=== PATIENT | female | born 1985 | race Caucasian/White ===

== ENCOUNTER 2020-06-01 01:14 | Emergency (ER) | payer BC, OTHER ==
--- NOTE | 2020-06-01 01:41 | PDOC ---
Attending Attestation - Resident Resident Name: Sb Dutta - ED Attending Attestation I have performed the following: I have examined & evaluated the patient, The case was reviewed & discussed with the resident, I agree w/resident's findings & plan - HPI HPI: 06/01/20 01:41 PT COMES WITH THREATENED AB; SHE IS 8 WEEKS - Physicial Exam PE: 06/01/20 05:36 lower abd pain on the right. No flank pain no suprapubic pain heart and lungs normal HEENT normal FATS AND OILS LOADER at bedside evaluating her vaginal exam - Medical Decision Making 06/01/20 03:17 Patient Name: JOIE ESTRADA THIS IS A PRELIMINARY REPORT DATE OF SERVICE: 2020-06-01 01:36:31 IMAGES: 53 EXAM: ULTRASOUND OB LESS THAN 14 WEEKS TRANSVAGINAL AND ULTRASOUND COLOR DUPLEX HISTORY: 34-Year-Old Female test results of the beta hCG are still pending with a Last Menstrual Period April 22, 2020 and if the patient is Estimated Gestational Age Based On the Last Menstrual Period is approximately 5 Weeks 5 Days. COMPARISON: None. FINDINGS: The right ovary measures 3 x 1.3 x 2.4 cm. Right adnexa nonspecific complex soft tissue mass measures 3.5 x 1.5 x 3.4 cm with a nonspecific irregular complex cystic process with no clearly defined pole and no yolk sac identified measures approximately 1.3 x 0.4 x 0.7 cm suspicious for an ectopic or other nonspecific complex adnexal cystic process. Small amount of nonspecific free fluid in the pelvis may be physiologic or due to infection. No intrauterine . The uterus measures 8.6 x 4.5 x 6.4 cm. There is no evidence of myometrial masses. The endometrium is normal in thickness and measures 1.7 cm. The left ovary measures 3.5 x 2.2 x 2.5 cm. Left ovary 1.4 x 0.9 x 1.4 cm cystic process most likely due to a corpus luteal cyst. COLOR DUPLEX: There is satisfactory perfusion to both the left and right ovary with normal appearing arterial and venous spectral waveforms. IMPRESSION: No evidence of ovarian torsion. Right adnexa nonspecific complex soft tissue mass measures 3.5 x 1.5 x 3.4 cm with a nonspecific irregular complex cystic process with no clearly defined pole and no yolk sac identified measures approximately 1.3 x 0.4 x 0.7 cm suspicious for an ectopic or other nonspecific complex adnexal cystic process. If clinically indicated recommend REPRODUCTION TECHNICIAN consultation and follow-up pelvic ultrasound. Small amount of nonspecific free fluid in the pelvis may be physiologic or due to infection. No intrauterine . This may be due to a normal early intrauterine that is too early to detect versus a spontaneous versus an ectopic . If clinically indicated recommend correlation with serial beta-hCG levels. Left ovary 1.4 x 0.9 x 1.4 cm cystic process most likely due to a corpus luteal cyst. 06/01/20 03:18 Pt's chem is normal beta HCG pending 06/01/20 05:37 FATS AND OILS LOADER at [facility] and they will decide whether to surgically or medically treat patient. Discharge - Discharge Information Problems reviewed: Yes Clinical Impression/Diagnosis: Ectopic Condition: Fair - Follow up/Referral Referrals: Carol Oneill [Primary Care Provider] - - Patient Discharge Instructions Patient Printed Discharge Instructions: DI for Ectopic Additional Instructions: You were seen in the ER for abdominal pain and vaginal bleeding in the context of . You received labs and imaging. Your imaging revealed a cystic mass in your right adnexa suggestive of ectopic . You were given medication for management of ectopic . Please followup with Dr. Cruz on the 04 of June. Please return to emergency department if you experience a worsening of your condition or fever, chills, night sweats, nausea, vomiting, shortness of breath. - Post Discharge Activity
--- OUTSIDE RECORDS SUMMARY | 2020-06-01 01:42 | XMS ---
:[address] [facility] Support Name Relationship Address Phone YOBE Unavailable [address] [place] [address] MARICARMEN ESTRADA [address] [place] [address] Re-disclosure Warning The records that you are about to access may contain information from federally- assisted alcohol or drug abuse programs. If such information is present, then the following federally mandated warning applies: This information has been disclosed to you from records protected by federal confidentiality rules (42 CFR part 2). The federal rules prohibit you from making any further disclosure of this information unless further disclosure is expressly permitted by the written consent of the person to whom it pertains or as otherwise permitted by 42 CFR part 2. A general authorization for the release of medical or other information is NOT sufficient for this purpose. The Federal rules restrict any use of the information to criminally investigate or prosecute any alcohol or drug abuse patient.The records that you are about to access may contain highly sensitive health information, the redisclosure of which is protected by Article 27-F of the [facility] Public [facility] law. If you continue you may haveaccess to information: Regarding HIV / AIDS; Provided by facilities licensed or operated by the [facility] Office of Mental Health; or Provided by the [facility] Office for People With Developmental Disabilities. If such information is present, then the following [facility] mandated warning applies: This information has been disclosed to you from confidential records which are protected by state law. State law prohibits you from making any further disclosure of this information without the specific written consent of the person to whom it pertains, or as otherwise permitted by law. Any unauthorized further disclosure in violation of state law may result in a fine or half-way sentence or both. A general authorization for the release of medical or other information is NOT sufficient authorization for further disclosure. Insurance Providers Payer name Policy type / Policy ID Covered Covered alliance party's Policy Plan Coverage type alliance party ID relationship to Jade Information jade EPO [id number] SP [id number] GHI PPO [id number] SP [id number] PPO [id number] S [id number]
[2020-06-01 01:43] VITALS: BMI 22.0
--- NOTE | 2020-06-01 02:33 | PDOC ---
History of Present Illness - General Chief Complaint: Pain Stated Complaint: ABDOMINAL PAIN Time Seen by Provider: 06/01/20 01:38 - History of Present Illness Initial Comments: 34 G1PO no significant medical history presents with lower abdominal pain and vaginal bleeding since 2 hours prior to arrival. Patient reports she observed blood mixed in with urine and has gone through one pad since the bleeding began. No bleeding prior to this evening. Denies fever Constitutional: No Weight Change, No Fever, No Chills, No Night Sweats, No Fatigue, No Malaise ENT/Mouth: No Hearing Changes, No Ear Pain, No Nasal Congestion, No Sinus Pain, No Hoarseness, No sore throat, No Rhinorrhea, No Swallowing Difficulty Eyes: No Eye Pain, No Swelling, No Redness, No Foreign Body, No Discharge, No Vision Changes Cardiovascular: No Chest Pain, No SOB, No PND, No Dyspnea on Exertion, No Orthopnea, No Claudication, No Edema, No Palpitations Respiratory: No Cough, No Sputum, No Wheezing, No Smoke Exposure, No Dyspnea Gastrointestinal: No Nausea, No Vomiting, No Diarrhea, No Constipation, + Pain, No Heartburn, No Anorexia, No Dysphagia, No Hematochezia, No Melena, No Flatulence, No Jaundice Genitourinary: No Dysmenorrhea, No DUB, No Dyspareunia, No Dysuria, No Urinary Frequency, + Hematuria, No Urinary Incontinence, No Urgency, No Flank Pain, No Urinary Flow Changes, No Hesitancy Musculoskeletal: No Arthralgias, No Myalgias, No Joint Swelling, No Joint Stiffness, No Back Pain, No Neck Pain, No Injury History Skin: No Skin Lesions, No Pruritis, No Hair Changes, No Breast/Skin Changes, No Nipple Discharge Neuro: No Weakness, No Numbness, No Paresthesias, No Loss of Consciousness, No Syncope, No Dizziness, No Headache, No Coordination Changes, No Recent Falls Psych: No Anxiety/Panic, No Depression, No Insomnia, No Personality Changes, No Delusions, No Rumination, No SI/HI/AH/VH, No Social Issues, No Memory Changes, N o Violence/Abuse Hx., No Eating Concerns Heme/Lymph: No Bruising, No Bleeding, No Transfusions History, No Lymphadenopathy Endocrine: No Polyuria, No Polydipsia, No Temperature Intolerance 06/01/20 02:51 Past History - Medical History Allergies/Adverse Reactions: Allergies Allergy/AdvReac Type Severity Reaction Status Date / Time No Known Allergies Allergy Verified 06/01/20 01:40 COPD: No - Reproductive History Is Patient Now?: Yes - Psycho-Social/Smoking History Smoking History: Never smoked - Substance Abuse Hx (Audit-C & DAST Scrn) How often the patient has a drink containing alcohol: Never Score: In Men: 4 or > Positive; In Women: 3 or > Positive: 0 Screen Result (Pos requires Nsg. Audit-10AR): Negative In the last yr the pt used illegal drug/Rx for NonMed reason: No Score: Yes response is considered Positive: 0 Screen Result (Positive result requires Nsg. DAST-10): Negative *Physical Exam - Vital Signs Last Vital Signs Temp Pulse Resp BP Pulse Ox 98.0 F 89 18 113/75 100 06/01/20 01:38 06/01/20 01:38 06/01/20 01:38 06/01/20 01:38 06/01/20 01:38 - Physical Exam General Appearance: Yes: Nourished, Appropriately Dressed, Moderate Distress HEENT: positive: EOMI, PORSHA, Normal ENT Inspection, Normal Voice, Symmetrical, TMs Normal, Pharynx Normal Neck: positive: Trachea midline, Normal Thyroid Respiratory/Chest: positive: Lungs Clear, Normal Breath Sounds Cardiovascular: positive: Regular Rhythm, Regular Rate, S1, S2 Musculoskeletal: positive: Normal Inspection Extremity: positive: Normal Capillary Refill, Normal Inspection, Normal Range of Motion Integumentary: positive: Normal Color, Dry, Warm Neurologic: positive: critical systems technician II-XII NML intact, Fully Oriented, Alert, Normal Mood/Affect, Normal Response, Motor Strength 5/5 ED Treatment Course - LABORATORY CBC & Chemistry Diagram: 06/01/20 02:28 06/01/20 02:28 Medical Decision Making - Medical Decision Making 34 presents with abdominal pain and vaginal bleeding - vitals wnl - exam ttp of suprapubic region - cbc, cmp, beta hcg, pelvic US reassess: - CBC, CMP wnl - beta hcg 3000s - Pelvig ultrasound reveals cystic mass in right adnexa and no intrauterine consistent ectopic - Dr. Cruz of [facility] saw patient, patient opts to take methotrexate for management - will DC patient to f/u with obgyn Discharge - Discharge Information Problems reviewed: Yes Clinical Impression/Diagnosis: Ectopic Condition: Fair - Admission No - Follow up/Referral Referrals: Carol Oneill [Primary Care Provider] - - Patient Discharge Instructions Patient Printed Discharge Instructions: DI for Ectopic Additional Instructions: You were seen in the ER for abdominal pain and vaginal bleeding in the context of . You received labs and imaging. Your imaging revealed a cystic mass in your right adnexa suggestive of ectopic . You were given medication for management of ectopic . Please followup with Dr. Cruz on the 04 of June. Please return to emergency department if you experience a wors ening of your condition or fever, chills, night sweats, nausea, vomiting, shortness of breath. - Post Discharge Activity
[2020-06-01 02:45] LABS: BASO % 0.3 % (0-2.0); EOS % 0.5 % (0-4.5); HEMATOCRIT 38.5 % (32.4-45.2); HEMOGLOBIN 13.5 GM/dL (10.7-15.3); LYMPH % 15.7 % (8-40); MCHC 35.1 g/dl (32.0-36.0); MEAN CELL VOLUME 99.7 fl (80-96); MEAN PLT VOLUME 9.3 fl (7.5-11.1); MONO % 6.1 % (3.8-10.2); NEUT % 77.4 % (42.8-82.8); PLATELET COUNT 210 K/MM3 (134-434); RBC 3.86 M/mm3 (3.60-5.2); RDW 12.5 % (11.6-15.6); WHITE BLOOD COUNT 9.4 K/mm3 (4.0-10.0)
[2020-06-01 03:13] LABS: ALBUMIN 4.5 g/dl (3.4-5.0); BILIRUBIN,TOTAL 0.4 mg/dL (0.2-1); BLOOD UREA NITROGEN 10.2 mg/dL (7-18); CREATININE 0.8 mg/dL (0.55-1.3); POTASSIUM 3.6 mmol/L (3.5-5.1)
[2020-06-01] MEDS ORDERED: ACETAMINOPHEN 1000 MG/100 ML VIAL (NON FORMULARY) IVPB ONE (03:29)
[2020-06-01 03:32] LABS: INR 0.92 (0.83-1.09); PROTHROMBIN TIME (PATIENT) 10.9 SEC (9.7-13.0)
[2020-06-01] MEDS ORDERED: ACETAMINOPHEN INJECTION 100 ML IVPB ONE (03:33)
[2020-06-01 03:35] LABS: ACTIVATED PTT 27.6 SECONDS (25.2-36.5)
[2020-06-01 03:58] LABS: EPI CELLS 3 /uL (0-25.1); HYALINE CASTS 0 /uL (0-3.1); PH,URINE 7.5 (5.0-8.0); URINE APPEARANCE CLEAR; URINE BACTERIA 263 /uL (0-1359); URINE BILIRUBIN NEGATIVE (NEGATIVE); URINE COLOR YELLOW; URINE GLUCOSE (UA) NEGATIVE (NEGATIVE); URINE KETONE NEGATIVE (NEGATIVE); URINE LEUK ESTERASE NEGATIVE (NEGATIVE); URINE NITRITE NEGATIVE (NEGATIVE); URINE PROTEIN NEGATIVE (NEGATIVE); URINE RBC 6 /uL (0-23.9); URINE UROBILINOGEN 0.2 mg/dL (0.2-1.0); URINE WBC 1 /uL (0-25.8)
--- NOTE | 2020-06-01 06:03 | CON.OBG ---
Consult Consult Specialty:: JANITORIAL MAINTENANCE WORKER Referred by:: Dr. Conenr Reason for Consultation:: 34yo female with suspected right ectopic . - History of Present Illness Chief Complaint: 34yo with LMP 04/22/2020 and positive test, presented to ER complaining of right pelvi pain and light vaginal bleeding vs. blood in urine. History of Present Illness: Pt found out she was . She has been sexually active for several years but was unable to conceive. She was seen by her WEATHERIZATION AND HOUSING INSPECTOR (Dr. Chavis) and preliminary labs were within normal limits. She has no h/o pelvic infections or pelvic/abdominal surgeries. She has a h/o severe dysmenorrhea and was being evaluated for suspected endometriosis. - History Source History Provided By: Patient, Medical Record Limitations to Obtaining History: No Limitations - Past Medical History HYDROLOGY TECHNICIAN: No: Alzheimer's, CVA, Dementia, Migraine, Multiple Sclerosis, Peripheral Neuropathy, Parkinson's, Seizure, Syncope, TIA, Vertigo, Other Cardio/Vascular: No: AFIB, Aneurysm, Aortic Insufficiency, Aortic Stenosis, CAD, CHF, Deep Vein Thrombosis, HTN, Hyperlipdemia, ME, Mitral Insufficiency, Mitral Stenosis, Murmur, Pulmonary Hypertension, Other Pulmonary: No: Asthma, Bronchitis, Cancer, COPD, O2 Dependent, Pneumonia, Previously Intubated, Pulmonary Embolus, Pulmonary Fibrosis, Sleep Apnea, Other Gastrointestinal: No: Ascites, Cancer, Constipation, Crohn's Disease, Diverticulitis, Diverticulosis, Esophageal Varices, Gastritis, GERD, GI Bleed, Hemorrhoids, Hiatal Hernia, Inflamatory Bowel Disease, Irritable Bowel Disease, Pancreatitis, Peptic Ulcer Disease, Ulcerative Colitis, Other Hepatobiliary: No: Cirrhosis, Cholelithiasis, Cholecystitis, Choledocholithiasis, Hepatitis A, Hepatitis B, Hepatitis C, Other Renal/: No: Renal Failure, Renal Inusuff, BPH, Cancer, Hematuria, Hemodialysis, Neurogenic Bladder, Renal Calculi, UTI, Other Reproductive: Yes: Endometriosis (suspected clinically) ...LMP: 04/27/20 ...: Yes ...: 1 ...Para: 0 Heme/Onc: No: Anemia, B12 Deficiency, Bleeding Disorder, Cancer, Current Chemotherapy, Current Radiation Therapy, Hemochromatosis, Hypercoaguable State, Myeloproliferative Synd, Sickle Cell Disease, Sickle Cell Trait, Thrombocytopenia, Other Infectious Disease: No: AIDS, C-Diff, Herpes Zoster, HIV, MRSA, STD's, Tuberc ulosis, VREF, Other Psych: No: Addictions, Anxiety, Bipolar, Depression, Panic, Psychosis, Schizophrenia, Other Musculoskeletal: No: Bursitis, Chronic low back pain, Hemiparesis, Hemiplegia, Osteoarthritis, Paraplegia, Other Rheumatology: No: Fibromyalgia, Gout, Lupus, Rheumatoid Arthritis, Sarcoidosis, Vasculitis, Other ENT: No: Allergic Rhinitis, Sinusitis, Other Endocrine: No: [place]'s Disease, Yadira's Disease, Diabetes Insipidus, Diabetes Mellitus, Hyperparathyroidism, Hyperthyroidism, Hypothyroidism, Osteopenia, SIADH, Other Dermatology: No: Basal Cell, Cellulitis, Eczema, Melanoma, Psoriasis, Squamous Cell, Other - Past Surgical History Past Surgical History: Yes: None Additional Surgical History: laceration repaired on right forehead as a child - Alcohol/Substance Use Hx Alcohol Use: No History of Substance Use: reports: None - Smoking History Smoking history: Never smoked Have you smoked in the past 12 months: No - Social History Usual Living Arrangement: Alone ADL: Independent Occupation: Speach therapist Place of : [facility] History of Recent Travel: No Home Medications - Allergies Allergies/Adverse Reactions: Allergies Allergy/AdvReac Type Severity Reaction Status Date / Time No Known Allergies Allergy Verified 06/01/20 01:40 Family Medical History Other Family History: Rheumatoid arthritis Review of Systems - Review of Systems Constitutional: reports: Other (pelvic pain) Eyes: reports: No Symptoms HENT: reports: No Symptoms Neck: reports: No Symptoms Cardiovascular: reports: No Symptoms Respiratory: reports: No Symptoms Gastrointestinal: reports: No Symptoms Genitourinary: reports: Vaginal Bleeding (light spotting) Breasts: reports: No Symptoms Reported Musculoskeletal: reports: No Symptoms Integumentary: reports: No Symptoms Neurological: reports: No Symptoms Endocrine: reports: No Symptoms Hematology/Lymphatic: reports: No Symptoms Psychiatric: reports: No Symptoms Pain Intensity: 2 Physical Exam-JANITORIAL MAINTENANCE WORKER Vital Signs: Vital Signs Temperature 98.0 F 06/01/20 01:38 Pulse Rate 89 06/01/20 01:38 Respiratory Rate 18 06/01/20 01:38 Blood Pressure 113/75 06/01/20 01:38 O2 Sat by Pulse Oximetry (%) 100 06/01/20 01:38 Constitutional: Yes: Well Nourished, No Distress, Calm Eyes: Yes: WNL, Conjunctiva Clear, EOM Intact HENT: Yes: WNL, Atraumatic, Normocephalic Neck: Yes: WNL, Supple, Trachea Midline Cardiovascular: Yes: WNL, Regular Rate and Rhythm Respiratory: Yes: WNL, Regular, CTA Bilaterally Gastrointestinal: Yes: WNL, Normal Bowel Sounds, Soft ...Rectal Exam: Yes: Deferred Renal/: Yes: WNL Pelvis: Yes: WNL External Genitalia: Yes: Normal Internal Exam Deferred: No Vaginal Exam: Yes: Bleeding (light spotting) Cervix: Yes: Normal Uterus: Yes: Normal Adnexa: Normal: Left, Right Musculoskeletal: Yes: WNL Extremities: Yes: WNL Edema: No Integumentary: Yes: WNL Neurological: Yes: WNL, Alert, Oriented ...Motor Strength: WNL Psychiatric: Yes: WNL, Alert, Oriented Labs: CBC, BMP 06/01/20 02:28 06/01/20 02:28 Problem List - Problems (1) Ectopic without intrauterine Assessment/Plan: 34yo female with suspected right ectopic . I reviewed the labs, images and reports. Based on the clinical exam and imaging, the patient appears to have an ectopic that is not ruptured. We discussed the tx options with surgery vs. MTX injection. I explained to the pt and her partner that surgery is "the gold standard" and definitive treatment of an ectopic . However, some patients, who meet specific criteria and strongly desire to avoid surgery, can be treated with MTX. We discussed the risks, benefits, alternatives of surgery and MTX. I explained that surgery is usually done laparoscopically and might result in excision of the right Fallopian tube. Risks of anesthesia, laparotomy, surgical complications, etc were reviewed. We also discussed the risks of MTX, including but not limited to ruptured ectopic , need for emergency surgery, medication toxicity, need for prolonged & close follow-up, future ectopic, even , etc. The pt declined surgery and prefers to have MTX. She will f/u in office. Problems reviewed: Yes Code(s): O00.90 - UNSPECIFIED ECTOPIC WITHOUT INTRAUTERINE Qualifiers: Location of ectopic : unspecified location Qualified Code(s): O00.90 - Unspecified ectopic without intrauterine
[2020-06-01] MEDS ORDERED: METHOTREXATE SODIUM/PF 25 MG/ML VIAL IM ONE (06:15)
[2020-06-01 07:32] VITALS: BP 114/73; PULSE 73; TEMP 97.9
== END 2020-06-01 07:31 | disposition home or self-care (01) ==
LOC: JER 01:14
PROC: 3E0333Z Introduction of Anti-inflammatory into Peripheral Vein, Percutaneous Approach (ICD-10-PCS; principal; 2020-06-01)
PROC: 3E0233Z Introduction of Anti-inflammatory into Muscle, Percutaneous Approach (ICD-10-PCS; 2020-06-01)
DX: O00.90 Unspecified ectopic pregnancy without intrauterine pregnancy (principal)
CPT/HCPCS: 36415; 76817-TC; 80053; 81003; 84702; 85025; 85610; 85730; 86850; 86900; 86901; 87086; 99284-25; J0131; J9260

== ENCOUNTER 2021-05-08 03:19 | Inpatient (IN) | payer BC, OTHER ==
[2021-05-08] MEDS ORDERED: ELECTROLYTE-148 SOLN 1,000 ML IV SCH ×2 (04:15→10:00)
[2021-05-08 05:16] LABS: BASO % 0.3 % (0-2.0); EOS % 0.1 % (0-4.5); HEMATOCRIT 37.4 % (32.4-45.2); HEMOGLOBIN 13.2 GM/dL (10.7-15.3); LYMPH % 8.9 % (8-40); MCH 34.5 pg (25.7-33.7); MCHC 35.4 g/dl (32.0-36.0); MEAN CELL VOLUME 97.5 fl (80-96); MEAN PLT VOLUME 10.6 fl (7.5-11.1); MONO % 5.6 % (3.8-10.2); NEUT % 85.1 % (42.8-82.8); PLATELET COUNT 185 10^3/uL (134-434); RBC 3.84 M/mm3 (3.60-5.2); RDW 13.4 % (11.6-15.6); WHITE BLOOD COUNT 14.3 K/mm3 (4.0-10.0)
[2021-05-08 05:21] VITALS: BMI 29.7
[2021-05-08 05:23] LABS: INR 0.83 (0.83-1.09); PROTHROMBIN TIME (PATIENT) 10.3 SEC (9.7-13.0)
[2021-05-08 05:26] LABS: CALCIUM 8.9 mg/dL (8.5-10.1)
[2021-05-08 05:28] LABS: BLOOD UREA NITROGEN 9.4 mg/dL (7-18)
[2021-05-08 05:30] LABS: CREATININE 0.7 mg/dL (0.55-1.3)
[2021-05-08] MEDS ORDERED: AMPICILLIN SODIUM 2 GM VIAL ONE (07:43)
[2021-05-08] MEDS ORDERED: AMPICILLIN - 2 GM in SODIUM CHLORIDE 100 ML IVPB ONE (08:00)
[2021-05-08] MEDS ORDERED: PCA PUMP NR ONE ×3 (08:08→20:22)
[2021-05-08] MEDS ORDERED: FENTANYL/BUPIVACAINE/NS/PF - PCEA - 50 ML DISP.SYRIN EP ONE ×4 (08:08→20:22)
[2021-05-08] MEDS ORDERED: NALOXONE HCL 0.4 MG/ML VIAL IVPUSH PRN (08:45)
[2021-05-08] MEDS: FENTANYL/BUPIVACAINE/NS/PF - PCEA - 50 ML DISP.SYRIN EP SCH ×3 (09:05→15:45)
[2021-05-08] MEDS ORDERED: OXYTOCIN 30 UNITS in 0.9% NS 30 UNIT/500 ML INFUS.BAG IVPB SCH (11:00)
[2021-05-08] MEDS ORDERED: AMPICILLIN SODIUM 1 GM VIAL ONE ×3 (11:34→20:05)
[2021-05-08] MEDS: AMPICILLIN - 1 GM in SODIUM CHLORIDE 100 ML IVPB SCH ×3 (12:00→20:15)
[2021-05-08] MEDS ORDERED: LIDOCAINE HCL 1% PRESERVATIVE FREE - 30ML VIAL ONE (17:37)
[2021-05-08] MEDS ORDERED: OXYTOCIN 20 UNITS in 0.9% NS 20 UNIT/1,000 ML INFUS.BAG IV ONE ×2 (17:38→23:11)
[2021-05-08] MEDS ORDERED: ACETAMINOPHEN INJECTION 100 ML IVPB ONE (20:03)
[2021-05-08] MEDS ORDERED: ACETAMINOPHEN 1000 MG/100 ML VIAL (NON FORMULARY) IVPB ONE (20:09)
[2021-05-08] MEDS ORDERED: SODIUM BICARBONATE 8.4% 50 MEQ/50 ML VIAL ONE (23:14)
[2021-05-08] MEDS ORDERED: PHENYLEPHRINE HCL 10 MG/1 ML SINGLE DOSE VIAL ONE (23:16)
[2021-05-08] MEDS ORDERED: ceFAZolin SODIUM 1 GM VIAL ONE (23:19)
[2021-05-08] MEDS ORDERED: SODIUM CHLORIDE 0.9% P/F 10 ML VIAL IJ ONE (23:19)
[2021-05-08] MEDS ORDERED: OXYTOCIN 10 UNITS/ML VIAL ONE (23:40)
[2021-05-09] MEDS ORDERED: KETOROLAC TROMETHAMINE 30 MG/1 ML VIAL ONE (00:01)
[2021-05-09] MEDS ORDERED: MIDAZOLAM HCL 2 MG/2 ML SINGLE DOSE VIAL ONE (00:01)
[2021-05-09] MEDS ORDERED: ONDANSETRON 4 MG/2 ML VIAL ONE (00:01)
[2021-05-09] MEDS ORDERED: DEXAMETHASONE SOD PHOSPHATE 4 MG/1 ML VIAL ONE (00:33)
[2021-05-09] MEDS ORDERED: BENZOCAINE 20% 57 GM BOTTLE TP PRN (00:57)
[2021-05-09] MEDS ORDERED: BENZOCAINE 28 GM HEMORRHOIDAL OINTMENT TP PRN (00:57)
[2021-05-09] MEDS ORDERED: METHYLERGONOVINE MALEATE 0.2 MG/1 ML AMP IM PRN (00:57)
[2021-05-09] MEDS ORDERED: IBUPROFEN 800 MG/8 ML IJ IVPB PRN (00:57)
[2021-05-09] MEDS ORDERED: oxyCODONE HCL 5 MG TABLET PO PRN (00:57)
[2021-05-09] MEDS ORDERED: WITCH HAZEL 50% (TUCKS) 40 PAD/JAR PAD TP PRN (00:57)
[2021-05-09] MEDS ORDERED: OXYTOCIN 20 UNITS in 0.9% NS 20 UNIT/1,000 ML INFUS.BAG IV SCH (01:00)
[2021-05-09] MEDS ORDERED: IBUPROFEN 600 MG TABLET (FP) PO PRN (01:12)
[2021-05-09] MEDS ORDERED: ONDANSETRON 4 MG/2 ML VIAL IVPUSH PRN (01:12)
[2021-05-09 03:12] LABS: CORD BASE EXCESS -7.6 mmol/L (0-2); CORD HCO3 17.6 mmHg (20-29); CORD PCO2 35.8 mmHg (30-78); CORD pH 7.31 (7.14-7.44)
[2021-05-09 03:13] LABS: CORD BASE EXCESS -6.8 mmol/L (0-2); CORD HCO3 18.4 mmHg (20-29); CORD PCO2 36.2 mmHg (30-78); CORD pH 7.323 (7.14-7.44)
[2021-05-09] MEDS: AMPICILLIN - 1 GM in SODIUM CHLORIDE 100 ML IVPB SCH (03:24)
[2021-05-09] MEDS: ENOXAPARIN NA (PORCINE) 40 MG/0.4 ML DISP.SYRIN SQ SCH (09:51)
[2021-05-09] MEDS: PRENATAL VITAMINS W/ FOLIC ACID TABLET (FP) PO SCH (09:51)
[2021-05-09] MEDS: SIMETHICONE 80 MG TAB.CHEW (FP) PO PRN (21:09)
[2021-05-09] MEDS: ACETAMINOPHEN 325 MG TABLET (FP) PO PRN (21:09)
[2021-05-09] MEDS: IBUPROFEN 600 MG TABLET (FP) PO PRN (21:10)
[2021-05-10] MEDS ORDERED: BISACODYL 10 MG SUPP.RECT RC PRN (00:57)
[2021-05-10] MEDS: ACETAMINOPHEN 325 MG TABLET (FP) PO PRN ×3 (06:09→20:51)
[2021-05-10] MEDS: SIMETHICONE 80 MG TAB.CHEW (FP) PO PRN ×2 (06:09→10:19)
[2021-05-10] MEDS: IBUPROFEN 600 MG TABLET (FP) PO PRN ×2 (06:09→12:36)
[2021-05-10 07:18] LABS: POC NITRAZINE NEG
[2021-05-10 08:40] LABS: BASO % 0.2 % (0-2.0); EOS % 0.2 % (0-4.5); HEMATOCRIT 27.6 % (32.4-45.2); HEMOGLOBIN 9.7 GM/dL (10.7-15.3); LYMPH % 10.1 % (8-40); MCH 34.8 pg (25.7-33.7); MCHC 35.2 g/dl (32.0-36.0); MEAN CELL VOLUME 98.7 fl (80-96); MEAN PLT VOLUME 9.6 fl (7.5-11.1); NEUT % 83.5 % (42.8-82.8); PLATELET COUNT 148 10^3/uL (134-434); RDW 13.3 % (11.6-15.6); WHITE BLOOD COUNT 14.4 K/mm3 (4.0-10.0)
[2021-05-10] MEDS: PRENATAL VITAMINS W/ FOLIC ACID TABLET (FP) PO SCH (10:19)
[2021-05-10] MEDS: ENOXAPARIN NA (PORCINE) 40 MG/0.4 ML DISP.SYRIN SQ SCH (10:19)
[2021-05-11] MEDS: ACETAMINOPHEN 325 MG TABLET (FP) PO PRN (05:45)
[2021-05-11] MEDS: IBUPROFEN 600 MG TABLET (FP) PO PRN (10:17)
[2021-05-11] MEDS: ENOXAPARIN NA (PORCINE) 40 MG/0.4 ML DISP.SYRIN SQ SCH (10:17)
[2021-05-11] MEDS: PRENATAL VITAMINS W/ FOLIC ACID TABLET (FP) PO SCH (10:20)
[2021-05-11 10:21] VITALS: BP 126/81; PULSE 78; TEMP 98.5
== END 2021-05-11 18:10 | disposition home or self-care (01) | DRG 788 ==
LOC: JDEL 03:19 → JLDR 04:05 → J3W 05-09 02:27
PROVIDERS: ADMIT Obstetrics & Gynecology; ATTEND Obstetrics & Gynecology
PROC: 10D00Z1 Extraction of Products of Conception, Low, Open Approach (ICD-10-PCS; principal; 2021-05-08)
PROC: 10H073Z Insertion of Monitoring Electrode into Products of Conception, Via Natural or Artificial Opening (ICD-10-PCS; 2021-05-08)
PROC: 0CJS8ZZ Inspection of Larynx, Via Natural or Artificial Opening Endoscopic (ICD-10-PCS; 2021-05-11)
DX: O62.0 Primary inadequate contractions (principal); O76 Abnormality in fetal heart rate and rhythm complicating labor and delivery; O48.0 Post-term pregnancy; O69.81X0 Labor and delivery complicated by cord around neck, without compression, not applicable or unspecified; O77.0 Labor and delivery complicated by meconium in amniotic fluid; O99.63 Diseases of the digestive system complicating the puerperium; K21.9 Gastro-esophageal reflux disease without esophagitis; J38.02 Paralysis of vocal cords and larynx, bilateral; R13.10 Dysphagia, unspecified; Z3A.40 40 weeks gestation of pregnancy; Z37.0 Single live birth
CPT/HCPCS: 36415; 36600; 59025; 70450-TC; 80048; 82803; 83986-QW; 85025; 85610; 85730; 86780; 86850; 86900; 86901; 93005; 93010; J0131